=== PATIENT | male | born 1965 ===

== ENCOUNTER → 2018-05-14 06:00 | Outpatient (CLI) | payer OTHER ==
[~2018-05-14 06:00] MED LIST: ENALAPRIL MALEA10 MG; HUMALOG MI100 UNIT/1; LANTUS SOL100 UNIT/1; XARELTO20 MG
== END | disposition home or self-care (01) ==
LOC: RAD 06:00 → EDSTATUS 05-18 06:13 → CIR.AMB 05-18 06:59
DX: S98.131A Complete traumatic amputation of one right lesser toe, initial encounter (principal); Z01.810 Encounter for preprocedural cardiovascular examination; Z01.812 Encounter for preprocedural laboratory examination; Z01.811 Encounter for preprocedural respiratory examination

== ENCOUNTER 2021-01-27 19:47 | Emergency (ER) | payer OTHER ==
[~2021-01-27] VITALS: Ht 177.8 cm; Wt 93.4 kg
[2021-01-27] MEDS ORDERED: NEURONTIN (20:45)
== END 2021-01-27 21:41 | disposition home or self-care (01) ==
LOC: ER 19:47
DX: S82.52XA Displaced fracture of medial malleolus of left tibia, initial encounter for closed fracture (principal); M12.572 Traumatic arthropathy, left ankle and foot; W18.09XA Striking against other object with subsequent fall, initial encounter; Y93.89 Activity, other specified; Y92.89 Other specified places as the place of occurrence of the external cause; Y99.8 Other external cause status